=== PATIENT | female | born 1975 | race Caucasian/White ===

== ENCOUNTER 2017-10-12 08:46 | Emergency (ER) | payer MEDICAID ==
[~2017-10-12] VITALS: Ht 149.9 cm; Wt 54.0 kg
[2017-10-12 08:53] VITALS: Ht 149.9 cm; Wt 54.0 kg
[2017-10-12 09:53] LABS: CALCIUM 8.8 mg/dL (8.5-10.1); CARBON DIOXIDE 27.2 mmol/L (21-32); CHLORIDE SERUM 102 mmol/L (98-107); CREATININE SERUM 0.7 mg/dL (0.6-1.0); GFR1 > 60 mL/min; GLUCOSE SERUM 95 mg/dL (74-106); POTASSIUM SERUM 3.1 mmol/L (3.5-5.1); SODIUM SERUM 140 mmol/L (136-145)
[2017-10-12 09:56] LABS: BASOPHIL % 0.8 % (0-2); PLATELET COUNT 196 x10^3mcL (130-400)
[2017-10-12 09:57] LABS: ALBUMIN 3.7 g/dL (3.4-5.0); ALKALINE PHOSPHATASE 67 U/L (46-116); ALT/SGPT 29 U/L (14-59); AMYLASE 26 U/L (25-115); AST/SGOT 16 U/L (15-37); BILIRUBIN TOTAL 0.4 mg/dL (0.20-1.00); LIPASE 77 IU/L (73-393)
[2017-10-12 10:01] LABS: RED CELL DISTRIBUTION WIDTH 14.9 % (11.5-14.5)
[2017-10-12 10:02] LABS: rbc morphology (normal/abnorm) ABNORMAL (NORMAL)
[2017-10-12 11:16] VITALS: BP 127/74
== END 2017-10-12 11:16 | disposition home or self-care (01) ==
LOC: ED 08:46
PROVIDERS: Emergency Medicine
DX: R10.13 Epigastric pain (principal)
CPT/HCPCS: 83880; J1885; J2405; Q0092